=== PATIENT | male | born 1960 | race Caucasian/White ===

== ENCOUNTER 2020-12-27 12:14 | Emergency (ER) | payer BC ==
[~2020-12-27] VITALS: Ht 185.4 cm; Wt 129.1 kg
[2020-12-27] MEDS ORDERED: LEVO175T2 (12:57)
[2020-12-27] MEDS ORDERED: OMEP-221 (12:57)
[2020-12-27] MEDS ORDERED: ACETAMINOPHEN TAB 650MG DOSE (2X325MG) PO ONE ×2 (13:40→18:25)
--- NOTE | 2020-12-27 13:44 | REP ---
INDICATION: DYSPNEA/COUGH. COMPARISON: None. TECHNIQUE: Single portable AP view of the chest was performed. FINDINGS: There is mild elevation of the right hemidiaphragm. There are linear fibro atelectatic changes in each lung base without evidence of consolidating infiltrate. The heart is not felt to be significantly enlarged. The mediastinal silhouette is unremarkable. IMPRESSION: Linear fibro atelectatic changes. No acute infiltrate. <Electronically signed by Quirino Nolan > 12/27/20 1641
[2020-12-27 13:56] LABS: BASO % 0.2 % (0.0-1.0); EOS % 0.6 % (0.0-3.0); HEMATOCRIT 44.1 % (42.0-52.0); HEMOGLOBIN 15.1 g/dl (13.5-17.5); LYMPH # 1.1 10^3/uL (1.5-5.0); LYMPH % 21.8 % (24.0-44.0); MEAN CORPUSCULAR HEMOGLOBIN 33.6 pg (27.0-33.0); MEAN CORPUSCULAR HGB CONC 34.2 g/dl (32.0-36.5); MEAN CORPUSCULAR VOLUME 98.2 fl (80.0-96.0); MONO # 0.6 10^3/uL (0.0-0.8); MONO % 11.3 % (2.0-8.0); NEUTROPHILS # 3.4 10^3/uL (1.5-8.5); NEUTROPHILS % 65.7 % (36.0-66.0); PLATELET COUNT, AUTOMATED 146 10^3/uL (150-450); RED BLOOD COUNT 4.49 10^6/uL (4.30-6.10); WHITE BLOOD COUNT 5.1 10^3/uL (4.0-10.0)
[2020-12-27 14:08] LABS: BLOOD UREA NITROGEN 14 MG/DL (7-18); CALCIUM LEVEL 8.6 MG/DL (8.8-10.2); CARBON DIOXIDE LEVEL 28 MEQ/L (21-32); CHLORIDE LEVEL 105 MEQ/L (98-107); CREATININE FOR GFR 1.13 MG/DL (0.70-1.30); GLOMERULAR FILTRATION RATE > 60.0 (>49); GLUCOSE, FASTING 125 MG/DL (70-100); POTASSIUM SERUM 4.3 MEQ/L (3.5-5.1); SODIUM LEVEL 138 MEQ/L (136-145); THYROXINE (T4) 11.3 UG/DL (4.5-12.0)
[2020-12-27 19:45] VITALS: BP 131/74
== END 2020-12-27 20:20 | disposition home or self-care (01) ==
LOC: M ED 12:14
DX: U07.1 COVID-19 (principal); I10 Essential (primary) hypertension; J45.909 Unspecified asthma, uncomplicated; E03.9 Hypothyroidism, unspecified; K21.9 Gastro-esophageal reflux disease without esophagitis; Z88.0 Allergy status to penicillin; Z88.2 Allergy status to sulfonamides; Z88.8 Allergy status to other drugs, medicaments and biological substances

== ENCOUNTER 2020-12-27 20:32 | Outpatient (CLI) | payer BC ==
[~2020-12-27] VITALS: Ht 185.4 cm; Wt 81.6 kg
--- NOTE | 2020-12-27 16:50 | CR.PDOC ---
General Date of Consultation: Dec 27, 2020 Consultation CHIEF COMPLAINT: Cough, shortness of breath, recently diagnosed with COVID-19 pneumonia HISTORY OF PRESENT ILLNESS: Patient is a 60-year-old male who presented to the emergency department specifically requesting to be treated with monoclonal antibodies. He was diagnosed with COVID-19 pneumonia last weekend, and then he subsequently developed worsening shortness of breath on and cough. He also has a pulse oximeter at home, and he reports that he is typically 98-99%, but he noticed that over the past few days he started to go down into the 94-95%. He did contact his outpatient provider and apparently they were unable to coordinate getting him monoclonal antibodies, therefore he presented to the emergency department. Of note, he is vaccinated, he received a [employer] a few months ago. He is sitting upright on the edge of the bed, speaking in full sentences. He does not appear to be in acute distress at this time. He is maintaining saturations on room air. He certainly qualifies for monoclonal antibodies given that he has a history of chronic lung disease (asthma), and obesity with a BMI greater than 25. We did have a discussion about the risks of receiving monoclonal antibodies, and the fact that it is a blood product and carries with it all the same risks involved with that as well, including but not limited to even anaphylaxis. He knows and understands these and is willing to give them. We also had a discussion about how this is not a fully researched option, and he does understand both the risks and benefits, and wishes to proceed. PAST MEDICAL HISTORY: Asthma Obesity Diagnosed as an outpatient as COVID-19 positive just within the last few days Hypothyroidism GERD SOCIAL HISTORY: He is a never smoker. Resident of [facility]. Works as a financial coordinator. FAMILY HISTORY: Not pertinent REVIEW OF SYSTEMS: Constitutional: Patient denies fevers, chills, night sweats, recent weight gain/loss. Cardiovascular: Patient denies palpitations, orthopnea, edema of the extremities, claudication. Respiratory: Patient denies admits to dyspnea, very minor wheezing, nonproductive cough, and some minimal chest discomfort after coughing. Denies hemoptysis, sputum production. PHYSICAL EXAMINATION: General: Awake, alert, oriented x3. He is in no acute distress at this time. HEENT: Head normocephalic atraumatic, conjunctiva are pink, sclera are nonicteric. Hearing is grossly intact to conversation. Respiratory: Speaking in full sentences. He is not using any accessory muscles. No audible wheeze at this time. IMAGING: Portable chest x-ray-- IMPRESSION: Linear fibro atelectatic changes. No acute infiltrate. ASSESSMENT: Positive for COVID-19 Shortness of breath Cough PLAN: Patient does not require inpatient admission at this time. He will be discharged from the ER and admitted as an outpatient for the administration of monoclonal antibodies, then will be discharged home. Patient understands and consents to the same. Allergies Coded Allergies: Penicillins (Verified Allergy, Unknown, unknown, 12/27/20) Sulfa (Sulfonamide Antibiotics) (Verified Allergy, Unknown, unknown, 12/27/20) bacitracin (Verified Allergy, Unknown, unknown, 12/27/20) neomycin (Verified Allergy, Unknown, unknown, 12/27/20) polymyxin B (Verified Allergy, Unknown, unknown, 12/27/20) Home Medications Miscellaneous Medications Levothyroxine Sodium (Levothyroxine Sodium) 175 Mcg Tablet, (Reported) Omeprazole (Omeprazole) 40 Mg Capsule., (Reported) ERASTO SANTORO DO Dec 27, 2020 16:50
[2020-12-27 20:15] VITALS: BP 133/78
[2020-12-27 20:25] VITALS: BP 133/78
[~2020-12-27 20:32] MED LIST: ALBUTEROL 90 MCG/ACT 8GM HFA INHALER INH PRN; ALBUTEROL SULFATE 2.5 MG/0.5 ML INH NEB SOLN INH PRN; CASIRIVIMAB/IMDEVIMAB 1,200 MG in NS 250 ML IV ONE; EPINEPHrine INJ 1 MG/ML 1ML AMP IM PRN; LEVO175T2; NS 1,000 ML IV SCH; OMEP-221; diphenhydrAMINE 50MG/ML VIAL (J1200) IV PRN; methylPREDNISolone 125MG 2ML VIAL IV PRN
[2020-12-27 21:03] VITALS: BP 118/74
[2020-12-27 21:35] VITALS: BP_SYST 75
[2020-12-27 22:17] VITALS: BP 133/76
== END 2020-12-27 22:19 ==
LOC: M OPCLI4 20:32 → M 4MAIN 20:43 → M OPCLI4 22:19
PROVIDERS: ATTEND Neuromusculoskeletal Medicine & OMM
DX: U07.1 COVID-19 (principal); Z88.0 Allergy status to penicillin; Z88.1 Allergy status to other antibiotic agents; Z88.2 Allergy status to sulfonamides

== ENCOUNTER → 2021-01-01 | Outpatient (CLI) | payer BC ==
[~2021-01-01] MED LIST changes: -ALBUTEROL 90 MCG/ACT 8GM HFA INHALER INH PRN; -ALBUTEROL SULFATE 2.5 MG/0.5 ML INH NEB SOLN INH PRN; -CASIRIVIMAB/IMDEVIMAB 1,200 MG in NS 250 ML IV ONE; -EPINEPHrine INJ 1 MG/ML 1ML AMP IM PRN; -NS 1,000 ML IV SCH; -diphenhydrAMINE 50MG/ML VIAL (J1200) IV PRN; -methylPREDNISolone 125MG 2ML VIAL IV PRN
--- NOTE | 2021-01-01 12:37 | REP ---
INDICATION: UNSPECIFIED ASTHMA WITH (ACUTE) EXACERBATION COMPARISON: None. TECHNIQUE: PA and lateral. FINDINGS: Examination suggests bibasilar and right middle lobe atelectasis. No definite effusion. No pneumothorax. Mediastinum and cardiac silhouette are stable. IMPRESSION: Findings suggesting right middle lobe and bibasilar atelectasis. <Electronically signed by Will Toledo > 01/01/21 [id number]
== END ==
LOC: M RAD 12:18
PROVIDERS: ATTEND Nurse Practitioner Family
DX: J45.901 Unspecified asthma with (acute) exacerbation (principal)